=== PATIENT | female | born 1970 | race Caucasian/White ===

== ENCOUNTER → 2016-09-24 | Outpatient (CLI) | payer BC ==
[2016-09-24 13:54] LABS: ALT 33 U/L (9-52); AST 19 U/L (14-36); Alkaline Phosphatase 88 U/L (38-126); Anion Gap 11 mmol/L; Blood Urea Nitrogen 13 mg/dL (7-17); Calcium 9.2 mg/dL (8.4-10.2); Carbon Dioxide 29 mmol/L (22-30); Chloride 105 mmol/L (98-107); Glucose 93 mg/dL (74-99); Non-African American GFR(MDRD) >60 (>60 ml/min/1.73 sqM); Potassium 4.2 mmol/L (3.5-5.1); Sodium 145 mmol/L (137-145); Total Bilirubin 0.4 mg/dL (0.2-1.3); Total Protein 7.4 g/dL (6.3-8.2)
== END | disposition home or self-care (01) ==
LOC: LABWHC1 12:18
PROVIDERS: ATTEND Internal Medicine Endocrinology, Diabetes & Metabolism
DX: C73 Malignant neoplasm of thyroid gland (principal); E89.0 Postprocedural hypothyroidism
CPT/HCPCS: 36415; 80053; 82306; 84432; 84439; 84443; 86800

== ENCOUNTER → 2016-12-29 | Outpatient (CLI) | payer BC ==
[2016-12-29 08:05] LABS: ALT 35 U/L (9-52); AST 24 U/L (14-36); Alkaline Phosphatase 89 U/L (38-126); Anion Gap 5 mmol/L; Blood Urea Nitrogen 13 mg/dL (7-17); C Reactive Protein 31.2 mg/L (<10.0); Carbon Dioxide 30 mmol/L (22-30); Chloride 106 mmol/L (98-107); Creatine Kinase 38 U/L (30-135); Glucose 94 mg/dL (74-99); Non-African American GFR(MDRD) >60 (>60 ml/min/1.73 sqM); Potassium 4.5 mmol/L (3.5-5.1); Sodium 141 mmol/L (137-145); Total Bilirubin 0.6 mg/dL (0.2-1.3); Total Protein 7.5 g/dL (6.3-8.2)
== END | disposition home or self-care (01) ==
LOC: LABWHC1 06:32
PROVIDERS: ATTEND Internal Medicine Endocrinology, Diabetes & Metabolism
DX: C73 Malignant neoplasm of thyroid gland (principal); E55.9 Vitamin D deficiency, unspecified; E89.0 Postprocedural hypothyroidism
CPT/HCPCS: 36415; 80053; 82550; 84439; 84443; 86140

== ENCOUNTER → 2017-02-13 | Outpatient (CLI) | payer BC ==
--- NOTE | 2017-02-13 10:17 | MM ---
Reason for exam: screening (asymptomatic). Last mammogram was performed 1 year and 11 months ago. History: Patient is postmenopausal and has history of other cancer at age 44. Family history of breast cancer in paternal aunt at age 60 and breast cancer in paternal cousin at age 45. Physical Findings: A clinical breast exam by your physician is recommended on an annual basis and results should be correlated with mammographic findings. MG 3D Screening Mammo W/Cad Bilateral CC and MLO view(s) were taken. Prior study comparison: March 24, 2015, bilateral MG screening mammo w CAD. November 21, 2013, bilateral digital screening mammo w/CAD. There are scattered fibroglandular densities. No significant changes when compared with prior studies. ASSESSMENT: Benign, BI-RAD 2 RECOMMENDATION: Routine screening mammogram of both breasts in 1 year.
== END | disposition home or self-care (01) ==
LOC: RADMAMWWP 06:55
PROVIDERS: ATTEND Family Medicine
DX: Z12.31 Encounter for screening mammogram for malignant neoplasm of breast (principal)
CPT/HCPCS: 77063; G0202

== ENCOUNTER → 2017-04-28 | Outpatient (CLI) | payer BC ==
[2017-04-28 14:43] LABS: ALT 38 U/L (9-52); AST 19 U/L (14-36); Alkaline Phosphatase 94 U/L (38-126); Anion Gap 12 mmol/L; Blood Urea Nitrogen 17 mg/dL (7-17); C Reactive Protein 19.7 mg/L (<10.0); Calcium 9.3 mg/dL (8.4-10.2); Carbon Dioxide 24 mmol/L (22-30); Chloride 106 mmol/L (98-107); Glucose 132 mg/dL (74-99); Non-African American GFR(MDRD) >60 (>60 ml/min/1.73 sqM); Potassium 4.1 mmol/L (3.5-5.1); Sodium 142 mmol/L (137-145); Total Bilirubin 0.2 mg/dL (0.2-1.3); Total Protein 7.2 g/dL (6.3-8.2)
== END | disposition home or self-care (01) ==
LOC: LABWHC1 13:36
PROVIDERS: ATTEND Internal Medicine Endocrinology, Diabetes & Metabolism
DX: E55.9 Vitamin D deficiency, unspecified (principal); E89.0 Postprocedural hypothyroidism; C73 Malignant neoplasm of thyroid gland; M79.1 Myalgia
CPT/HCPCS: 36415; 80053; 82306; 84432; 84439; 84443; 86140; 86800

== ENCOUNTER → 2017-09-05 | Outpatient (CLI) | payer BC ==
[2017-09-05 14:46] LABS: Calcium 9.7 mg/dL (8.4-10.2)
[2017-09-05 15:03] LABS: T4, Free (Free Thyroxine) 1.84 ng/dL (0.78-2.19)
[2017-09-05 19:07] LABS: Vitamin D 25 Hydroxy 94.6 ng/mL (30.0-100.0)
== END | disposition home or self-care (01) ==
LOC: LABWHC1 13:15
PROVIDERS: ATTEND Internal Medicine Endocrinology, Diabetes & Metabolism
DX: E55.9 Vitamin D deficiency, unspecified (principal); N95.1 Menopausal and female climacteric states; E89.0 Postprocedural hypothyroidism
CPT/HCPCS: 36415; 82306; 82310; 83001; 83002; 84439; 84443

== ENCOUNTER → 2018-01-02 | Outpatient (CLI) | payer BC ==
[2018-01-02 12:14] LABS: ALT 22 U/L (9-52); AST 20 U/L (14-36); Albumin 4.6 g/dL (3.5-5.0); Alkaline Phosphatase 90 U/L (38-126); Anion Gap 14 mmol/L; Blood Urea Nitrogen 13 mg/dL (7-17); Calcium 9.5 mg/dL (8.4-10.2); Carbon Dioxide 23 mmol/L (22-30); Chloride 109 mmol/L (98-107); Cholesterol 202 mg/dL (<200); Glucose 140 mg/dL (74-99); HDL Cholesterol 59 mg/dL (40-60); LDL Cholesterol,Calculated 126 mg/dL (0-99); Potassium 4.1 mmol/L (3.5-5.1); Sodium 146 mmol/L (137-145); Total Bilirubin 0.3 mg/dL (0.2-1.3); Total Protein 7.7 g/dL (6.3-8.2); Triglycerides 87 mg/dL (<150)
[2018-01-02 12:30] LABS: T4, Free (Free Thyroxine) 1.59 ng/dL (0.78-2.19)
[2018-01-02 18:48] LABS: Thyroglobulin <0.20 ng/mL (1.60-59.90)
== END | disposition home or self-care (01) ==
LOC: LABWHC1 11:34
PROVIDERS: ATTEND Internal Medicine Endocrinology, Diabetes & Metabolism
DX: E89.0 Postprocedural hypothyroidism (principal); E55.9 Vitamin D deficiency, unspecified; M79.1 Myalgia; M89.9 Disorder of bone, unspecified
CPT/HCPCS: 36415; 80053; 80061; 82306; 84432; 84439; 84443; 86800

== ENCOUNTER 2018-02-05 15:27 | Emergency (ER) | payer BC ==
--- NOTE | 2018-02-05 16:22 | ED ---
General Adult HPI - General Chief complaint: Recheck/Abnormal Lab/Rx Stated complaint: Poss blood clot Time Seen by Provider: 02/05/18 16:08 Source: patient, RN notes reviewed Mode of arrival: ambulatory Limitations: no limitations - History of Present Illness Initial comments: Patient is a 47-year-old female significant past medical history for Lupus, DVT , presents to the emergency room today with a chief complaint of some redness and swelling to left lower extremity. She does not that she had a recent stent placed in the left leg at [facility] 5 days ago. Patient states that she noticed some redness to the left lower calf area today. Patient states it is still numb after surgery. Patient states swelling has not changed. Patient denies any other complaints or symptoms. Patient denies any recent fever, chills, shortness of breath, chest pain, back pain, abdominal pain , nausea or vomiting, headaches or visual changes, or any other complaints. - Related Data Home Medications Medication Instructions Recorded Confirmed Biotin 5 mg PO DAILY 02/05/18 02/05/18 Enoxaparin [Lovenox] 100 mg SQ Q12H 02/05/18 02/05/18 Ergocalciferol (Vitamin D2) 50,000 unit PO MOFR 02/05/18 02/05/18 [Vitamin D2] Hydroxychloroquine Sulfate 400 mg PO BID 02/05/18 02/05/18 [Plaquenil] Levothyroxine Sodium [Synthroid] 175 mcg PO DAILY 02/05/18 02/05/18 Turmeric Root Extract [Turmeric] 500 mg PO DAILY 02/05/18 02/05/18 Previous Rx's Medication Instructions Recorded Cephalexin [Keflex] 500 mg PO Q12HR 10 Days cap 02/05/18 Allergies Allergy/AdvReac Type Severity Reaction Status Date / Time Iodinated Contrast- Oral and Allergy Dyspnea Verified 02/05/18 16:11 IV Dye [Iodinated Contrast Media - IV Dye] Review of Systems ROS Statement: Those systems with pertinent positive or pertinent negative responses have been documented in the HPI. ROS Other: All systems not noted in ROS Statement are negative. Past Medical History Past Medical History: Deep Vein Thrombosis (DVT), Pneumonia, Pulmonary Embolus ( PE) Additional Past Medical History / Comment(s): MTHFR Gene mutation predisposes to blood clots. 2 PE's 2006, pneumonia as a child, pericardial effusion-2006, series of DVT 1994, 2001, multiple thyroid nodules lupas History of Any Multi-Drug Resistant Organisms: None Reported Past Surgical History: Uterine Ablation Additional Past Surgical History / Comment(s): [place] filter placed 1994, left oopherectomy, 2 stents in iliac vein left side. leg/venous surg recently Past Anesthesia/Blood Transfusion Reactions: No Reported Reaction Past Psychological History: No Psychological Hx Reported Smoking Status: Never smoker Past Alcohol Use History: None Reported Past Drug Use History: Unable to Obtain - Past Family History Father Family Medical History: Thyroid Disorder Additional Family Medical History / Comment(s): hypothyroid, CHF General Exam - General Exam Comments Initial Comments: General: The patient is awake and alert, in no distress, and does not appear acutely ill. Eye: Pupils are equal, round and reactive to light, extra-ocular movements are intact. No nystagmus. There is normal conjunctiva bilaterally. No signs of icterus. Ears, nose, mouth and throat: There are moist mucous membranes and no oral lesions. Neck: The neck is supple, there is no tenderness or JVD. Musculoskeletal: Normal ROM, no tenderness. Strength 5/5. Sensation intact. Pulses equal bilaterally 2+. Neurological: A&O x 3. CN II-XII intact, There are no obvious motor or sensory deficits. Coordination appears grossly intact. Speech is normal. Skin: Mild redness the mid medial aspect of the left lower extremity with increased warmth with some lymphangitic streaking just below left knee. Psychiatric: Cooperative, appropriate mood & affect, normal judgment. Limitations: no limitations Course Vital Signs 02/05/18 15:44 Temperature 98.5 F Pulse Rate 100 Respiratory 18 Rate Blood Pressure 126/82 O2 Sat by Pulse 98 Oximetry Medical Decision Making - Medical Decision Making Patient reexamined at this time shows no signs of distress. She denies any chest pain, shortness of breath. Her vitals are stable here in emergency room. Patient's resting complete. She does have some mild swelling and some redness to the medial aspect of the left calf. There is a local incision site that is healed well. Redness is surrounding some injection streaking. Ultrasound reviewed and of this specific area believes that there could be partially thrombosed varicose veins. Patient's ultrasound reviewed and shows internal debris seen throughout the left leg within the EIF, CFV, popliteal vein and posterior proximal calf vein. Able to fully compress the left EIV. Other vessels did not fully compress lending itself to a chronic versus an acute process. Patient had a recent procedure to clear clots in this leg and had saphenous vein removed. Patient has been on Lovenox prior to and since this procedure. She was on Coumadin prior to this she stopped did not take Coumadin or Lovenox for 1 day approximately 10 days ago. Patient is currently supposed to stay on Lovenox until her follow-up appointment. At this time patient's findings on ultrasound are inconclusive for a acute DVT versus chronic. Patient's labs are reviewed. Case discussed in detail with attending physician Dr. Bradshaw. Patient is on Lovenox will be continued on this medication advised follow-up with her family doctor tomorrow. In started on antibiotics cover for superficial cellulitis of the left lower leg. Advised to return if symptoms increase or worsen or for any other concerns patient states understanding and is in agreement. - Lab Data Result diagrams: 02/05/18 18:00 02/05/18 18:00 Lab Results 02/05/18 02/05/18 02/05/18 Range/Units 18:00 18:00 18:00 WBC 8.4 (3.8-10.6) k/uL RBC 5.02 (3.80-5.40) m/uL Hgb 12.9 (11.4-16.0) gm/dL Hct 40.3 (34.0-46.0) % MCV 80.2 (80.0-100.0) fL MCH 25.8 (25.0-35.0) pg MCHC 32.2 (31.0-37.0) g/dL RDW 15.6 H (11.5-15.5) % Plt Count 255 (150-450) k/uL Neutrophils % 74 % Lymphocytes % 13 % Monocytes % 8 % Eosinophils % 4 % Basophils % 0 % Neutrophils # 6.2 (1.3-7.7) k/uL Lymphocytes # 1.1 (1.0-4.8) k/uL Monocytes # 0.6 (0-1.0) k/uL Eosinophils # 0.3 (0-0.7) k/uL Basophils # 0.0 (0-0.2) k/uL PT 9.9 (9.0-12.0) sec INR 1.0 (<1.2) APTT 24.4 (22.0-30.0) sec Sodium 145 (137-145) mmol/L Potassium 4.2 (3.5-5.1) mmol/L Chloride 101 (98-107) mmol/L Carbon Dioxide 29 (22-30) mmol/L Anion Gap 15 mmol/L BUN 19 H (7-17) mg/dL Creatinine 0.74 (0.52-1.04) mg/dL Est GFR (CKD-EPI)AfAm >90 (>60 ml/min/1.73 sqM) Est GFR (CKD-EPI)NonAf >90 (>60 ml/min/1.73 sqM) Glucose 87 (74-99) mg/dL Calcium 9.4 (8.4-10.2) mg/dL Total Bilirubin 0.4 (0.2-1.3) mg/dL AST 40 H (14-36) U/L ALT 60 H (9-52) U/L Alkaline Phosphatase 72 (38-126) U/L Total Protein 7.1 (6.3-8.2) g/dL Albumin 4.4 (3.5-5.0) g/dL Disposition Clinical Impression: Cellulitis Disposition: HOME SELF-CARE Condition: Good Instructions: Cellulitis (ED) Additional Instructions: Please continue Lovenox as discussed in follow-up with your family doctor and vascular surgeon. Please use antibiotic as prescribed and return to emergency room if any symptoms increase or worsen or for any other concerns. Prescriptions: Cephalexin [Keflex] 500 mg PO Q12HR 10 Days cap Is patient prescribed a controlled substance at d/c from ED?: No Referrals: Cooper Barksdale MD [Primary Care Provider] - 1-2 days Time of Disposition: 18:41
--- NOTE | 2018-02-05 17:16 | US ---
EXAMINATION TYPE: US venous doppler duplex LE LT DATE OF EXAM: 02/05/2018 4:17 PM COMPARISON: NONE CLINICAL HISTORY: Pain. Patient just had gsv stripping on left leg and what she describes as dvt's re moved from her left femoral vein, popiteal vein and new stenting put in place. Patient has Lupus and has extensive history of DVTs and PE's. SIDE PERFORMED: Left TECHNIQUE: The lower extremity deep venous system is examined utilizing real time linear array sonog fabi with graded compression, doppler sonography and color-flow sonography. VESSELS IMAGED: External Iliac Vein (EIV) Common Femoral Vein Deep Femoral Vein Greater Saphenous Vein * Femoral Vein Popliteal Vein Small Saphenous Vein * Proximal Calf Veins (* superficial vessels) Left Leg: Patient has internal debris seen throughout her left leg within EIV, CFV, popiteal vein an d posterior prox calf vein. Only able to obtain full compression of left EIV. Otherwise vessels did n ot fully compress lending itself to chronic versus acute process, considering her recent sx to remove clot of this leg. Vessels did have color flow but posterior proximal calf vein had no flow within. Medial left calf at lower scar site where redness occurs appears to have partially thrombosed varicos e veins; internal debris seen, minimal color flow and lack of compression. IMPRESSION: There is evidence for acute and chronic deep venous thrombosis in the left leg.
[2018-02-05 18:11] LABS: Basophils % (A) 0 %; Eosinophils # (A) 0.3 k/uL (0-0.7); Eosinophils % (A) 4 %; HCT 40.3 % (34.0-46.0); HGB 12.9 gm/dL (11.4-16.0); Lymphocytes # (A) 1.1 k/uL (1.0-4.8); Lymphocytes % (A) 13 %; MCH 25.8 pg (25.0-35.0); MCHC 32.2 g/dL (31.0-37.0); MCV 80.2 fL (80.0-100.0); Mean Platelet Volume 7.4; Monocytes # (A) 0.6 k/uL (0-1.0); Monocytes % (A) 8 %; Neutrophils # (A) 6.2 k/uL (1.3-7.7); Neutrophils % (A) 74 %; Platelet Count 255 k/uL (150-450); RBC 5.02 m/uL (3.80-5.40); RDW 15.6 % (11.5-15.5); WBC 8.4 k/uL (3.8-10.6)
[2018-02-05 18:16] LABS: Partial Thromboplastin Time 24.4 sec (22.0-30.0); Prothrombin Time 9.9 sec (9.0-12.0)
[2018-02-05 18:20] LABS: ALT 60 U/L (9-52); AST 40 U/L (14-36); Albumin 4.4 g/dL (3.5-5.0); Alkaline Phosphatase 72 U/L (38-126); Anion Gap 15 mmol/L; Blood Urea Nitrogen 19 mg/dL (7-17); Calcium 9.4 mg/dL (8.4-10.2); Carbon Dioxide 29 mmol/L (22-30); Chloride 101 mmol/L (98-107); Glucose 87 mg/dL (74-99); Potassium 4.2 mmol/L (3.5-5.1); Sodium 145 mmol/L (137-145); Total Bilirubin 0.4 mg/dL (0.2-1.3); Total Protein 7.1 g/dL (6.3-8.2)
[2018-02-05 18:51] VITALS: BP 115/69; PULSE 94; RESP 16; TEMP 98.3
== END 2018-02-05 18:51 | disposition home or self-care (01) ==
LOC: EC 15:27
DX: L03.116 Cellulitis of left lower limb (principal); M32.9 Systemic lupus erythematosus, unspecified; E07.89 Other specified disorders of thyroid; Z79.01 Long term (current) use of anticoagulants; Z79.899 Other long term (current) drug therapy; Z91.041 Radiographic dye allergy status; Z86.711 Personal history of pulmonary embolism; Z86.718 Personal history of other venous thrombosis and embolism; Z95.828 Presence of other vascular implants and grafts
CPT/HCPCS: 36415; 80053; 85025; 85610; 85730; 99284

== ENCOUNTER 2018-02-12 12:10 | Emergency (ER) | payer BC ==
[2018-02-12 12:18] VITALS: RESP 18
--- NOTE | 2018-02-12 13:46 | US ---
EXAMINATION TYPE: US venous doppler duplex LE LT DATE OF EXAM: 02/12/2018 1:17 PM COMPARISON: Left leg extremity swelling and pain. CLINICAL HISTORY: Pain. Patient is post op 2 weeks GSV ablation. History of DVT left leg, hx of IVC filter which was taken out and patient has a stent in her IVC SIDE PERFORMED: left TECHNIQUE: The lower extremity deep venous system is examined utilizing real time linear array sonog fabi with graded compression, doppler sonography and color-flow sonography. VESSELS IMAGED: External Iliac Vein (EIV) Common Femoral Vein Deep Femoral Vein Greater Saphenous Vein * Femoral Vein Popliteal Vein Small Saphenous Vein * Proximal Calf Veins, not seen due to swelling (* superficial vessels) Left Leg: Patient appears to have some chronic DVT. Vein appears to have flow at times (mid and dist al femoral vein) flow is thready. Vein is not compressible throughout. IMPRESSION: Persistent residual partial occlusive chronic thrombus in the left lower extremity as det josefina above improved from prior. No new thrombus identified.
--- NOTE | 2018-02-12 14:16 | ED ---
General Adult HPI - General Chief complaint: Extremity Problem,Nontraumatic Stated complaint: poss blood clot Time Seen by Provider: 02/12/18 13:02 Source: patient, RN notes reviewed Mode of arrival: ambulatory Limitations: no limitations - History of Present Illness Initial comments: Patient 47-year-old female status post left lower leg saphenous vein removal 2 weeks, presented to the emergency room today with a chief complaint of increased swelling. Patient was seen here approximately a week ago and negative on some for any new DVT. Patient was treated for a cellulitis. Patient was on Keflex. It was switched by the family doctor to Levaquin. Patient does admit that stool expressing swelling to the left leg seemed to be getting worse. Family doctor to see patient today and sent in to rule out new DVT. She is currently on Lovenox. Patient denies any recent fever, chills, shortness of breath, chest pain, back pain, abdominal pain, nausea or vomiting, dysuria or hematuria, constipation or diarrhea, headaches or visual changes, or any other complaints. - Related Data Home Medications Medication Instructions Recorded Confirmed Biotin 5 mg PO DAILY 02/05/18 02/12/18 Enoxaparin [Lovenox] 100 mg SQ Q12H 02/05/18 02/12/18 Ergocalciferol (Vitamin D2) 50,000 unit PO MOFR 02/05/18 02/12/18 [Vitamin D2] Hydroxychloroquine Sulfate 200 mg PO BID 02/05/18 02/12/18 [Plaquenil] Levothyroxine Sodium [Synthroid] 175 mcg PO DAILY 02/05/18 02/12/18 Turmeric Root Extract [Turmeric] 500 mg PO DAILY 02/05/18 02/12/18 Levofloxacin [Levaquin] 500 mg PO DAILY 02/12/18 02/12/18 Allergies Allergy/AdvReac Type Severity Reaction Status Date / Time Iodinated Contrast- Oral and Allergy Dyspnea Verified 02/12/18 13:58 IV Dye [Iodinated Contrast Media - IV Dye] Review of Systems ROS Statement: Those systems with pertinent positive or pertinent negative responses have been documented in the HPI. ROS Other: All systems not noted in ROS Statement are negative. Past Medical History Past Medical History: Deep Vein Thrombosis (DVT), Pneumonia, Pulmonary Embolus ( PE) Additional Past Medical History / Comment(s): MTHFR Gene mutation predisposes to blood clots. 2 PE's 2006, pneumonia as a child, pericardial effusion-2006, series of DVT 1994, 2001, multiple thyroid nodules lupas History of Any Multi-Drug Resistant Organisms: None Reported Past Surgical History: Uterine Ablation Additional Past Surgical History / Comment(s): [place] filter placed 1994, left oopherectomy, 2 stents in iliac vein left side. leg/venous surg recently Past Anesthesia/Blood Transfusion Reactions: No Reported Reaction Past Psychological History: No Psychological Hx Reported Smoking Status: Never smoker Past Alcohol Use History: None Reported Past Drug Use History: Unable to Obtain - Past Family History Father Family Medical History: Thyroid Disorder Additional Family Medical History / Comment(s): hypothyroid, CHF General Exam - General Exam Comments Initial Comments: General: The patient is awake and alert, in no distress, and does not appear acutely ill. Eye: Pupils are equal, round and reactive to light, extra-ocular movements are intact. No nystagmus. There is normal conjunctiva bilaterally. No signs of icterus. Ears, nose, mouth and throat: There are moist mucous membranes and no oral lesions. Neck: The neck is supple, there is no tenderness or JVD. Musculoskeletal: Normal ROM, no tenderness. Strength 5/5. Sensation intact. Pulses equal bilaterally 2+. Neurological: A&O x 3. CN II-XII intact, There are no obvious motor or sensory deficits. Coordination appears grossly intact. Speech is normal. Skin: Mild redness to the left lower extremity. No lymphangitic streaking. No blood aspirated moderate swelling.. Psychiatric: Cooperative, appropriate mood & affect, normal judgment. Limitations: no limitations Course Vital Signs 02/12/18 12:13 Temperature 98.4 F Pulse Rate 96 Respiratory 18 Rate Blood Pressure 136/70 O2 Sat by Pulse 99 Oximetry Medical Decision Making - Medical Decision Making Patient's ultrasound shows some chronic DVT. Veins appears to have flow at times with mid and distal femoral vein however is a thready flow. Vein not compressible throughout. Patient's labs were reviewed. Case was discussed and seen by tenderness is Dr. Scales twisting patient at bedside. At this time was recommended for transfer back to [facility] where she had previous surgery and saphenous vein removed. Case was discussed with [facility] ER physician Dr. Hickman. Was discussed with patient about transfer by EMS. She has declined states she does not want take an ambulance. Patient given dose of Lovenox here in the emergency room will be transferred by private car. - Lab Data Result diagrams: 02/12/18 14:00 02/12/18 14:00 Lab Results 02/12/18 02/12/18 02/12/18 Range/Units 14:00 14:00 14:00 WBC 6.4 (3.8-10.6) k/uL RBC 4.17 (3.80-5.40) m/uL Hgb 10.9 L (11.4-16.0) gm/dL Hct 33.7 L (34.0-46.0) % MCV 80.9 (80.0-100.0) fL MCH 26.2 (25.0-35.0) pg MCHC 32.4 (31.0-37.0) g/dL RDW 15.9 H (11.5-15.5) % Plt Count 245 (150-450) k/uL Neutrophils % 75 % Lymphocytes % 14 % Monocytes % 5 % Eosinophils % 4 % Basophils % 1 % Neutrophils # 4.8 (1.3-7.7) k/uL Lymphocytes # 0.9 L (1.0-4.8) k/uL Monocytes # 0.3 (0-1.0) k/uL Eosinophils # 0.2 (0-0.7) k/uL Basophils # 0.0 (0-0.2) k/uL Hypochromasia Slight PT 10.3 (9.0-12.0) sec INR 1.0 (<1.2) APTT 25.7 (22.0-30.0) sec Sodium 144 (137-145) mmol/L Potassium 4.3 (3.5-5.1) mmol/L Chloride 105 (98-107) mmol/L Carbon Dioxide 26 (22-30) mmol/L Anion Gap 13 mmol/L BUN 16 (7-17) mg/dL Creatinine 0.71 (0.52-1.04) mg/dL Est GFR (CKD-EPI)AfAm >90 (>60 ml/min/1.73 sqM) Est GFR (CKD-EPI)NonAf >90 (>60 ml/min/1.73 sqM) Glucose 90 (74-99) mg/dL Calcium 9.1 (8.4-10.2) mg/dL Total Bilirubin 0.3 (0.2-1.3) mg/dL AST 24 (14-36) U/L ALT 34 (9-52) U/L Alkaline Phosphatase 68 (38-126) U/L Total Protein 6.7 (6.3-8.2) g/dL Albumin 3.9 (3.5-5.0) g/dL Disposition Clinical Impression: Chronic deep vein thrombosis (DVT) 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 Is patient prescribed a controlled substance at d/c from ED?: No Referrals: Cooper Barksdale MD [Primary Care Provider] - 1-2 days Time of Disposition: 15:20 - Out of Hospital Transfer - Req. Specs Out of Hospital Transfer - Requested Specifics: Other Emergency Center ( [facility])
[2018-02-12 14:23] LABS: Basophils % (A) 1 %; Eosinophils # (A) 0.2 k/uL (0-0.7); Eosinophils % (A) 4 %; HCT 33.7 % (34.0-46.0); HGB 10.9 gm/dL (11.4-16.0); Hypochromasia Slight; Lymphocytes # (A) 0.9 k/uL (1.0-4.8); Lymphocytes % (A) 14 %; MCH 26.2 pg (25.0-35.0); MCHC 32.4 g/dL (31.0-37.0); MCV 80.9 fL (80.0-100.0); Mean Platelet Volume 6.6; Monocytes # (A) 0.3 k/uL (0-1.0); Monocytes % (A) 5 %; Neutrophils # (A) 4.8 k/uL (1.3-7.7); Neutrophils % (A) 75 %; Platelet Count 245 k/uL (150-450); RBC 4.17 m/uL (3.80-5.40); RDW 15.9 % (11.5-15.5); WBC 6.4 k/uL (3.8-10.6)
[2018-02-12 14:30] LABS: ALT 34 U/L (9-52); AST 24 U/L (14-36); Albumin 3.9 g/dL (3.5-5.0); Alkaline Phosphatase 68 U/L (38-126); Anion Gap 13 mmol/L; Blood Urea Nitrogen 16 mg/dL (7-17); Calcium 9.1 mg/dL (8.4-10.2); Carbon Dioxide 26 mmol/L (22-30); Chloride 105 mmol/L (98-107); Glucose 90 mg/dL (74-99); Potassium 4.3 mmol/L (3.5-5.1); Sodium 144 mmol/L (137-145); Total Bilirubin 0.3 mg/dL (0.2-1.3); Total Protein 6.7 g/dL (6.3-8.2)
[2018-02-12 14:35] LABS: Partial Thromboplastin Time 25.7 sec (22.0-30.0); Prothrombin Time 10.3 sec (9.0-12.0)
[2018-02-12] MEDS ORDERED: ENOXAPARIN 100 MG/ML SYRINGE SQ STA (15:13)
[2018-02-12 15:46] VITALS: BP 121/75; PULSE 86; TEMP 98.1
== END 2018-02-12 15:49 | disposition short-term general hospital (02) ==
LOC: EC 12:10
DX: I82.509 Chronic embolism and thrombosis of unspecified deep veins of unspecified lower extremity (principal); M32.9 Systemic lupus erythematosus, unspecified; E07.89 Other specified disorders of thyroid; Z79.01 Long term (current) use of anticoagulants; Z79.899 Other long term (current) drug therapy; Z91.041 Radiographic dye allergy status; Z87.01 Personal history of pneumonia (recurrent); Z86.711 Personal history of pulmonary embolism; Z98.890 Other specified postprocedural states
CPT/HCPCS: 36415; 80053; 85025; 85610; 85730; 93971; 99284; 96372; J1650

== ENCOUNTER → 2018-04-11 | Outpatient (CLI) | payer BC ==
--- NOTE | 2018-04-17 09:11 | MM ---
Reason for exam: screening (asymptomatic). Last mammogram was performed 1 year and 2 months ago. History: Patient is postmenopausal and has history of other cancer at age 44. Family history of breast cancer in paternal aunt at age 60 and breast cancer in paternal cousin at age 45. Physical Findings: A clinical breast exam by your physician is recommended on an annual basis and results should be correlated with mammographic findings. MG Screening Mammo w CAD Bilateral CC and MLO view(s) were taken. Prior study comparison: February 13, 2017, bilateral MG 3d screening mammo w/cad. March 24, 2015, bilateral MG screening mammo w CAD. There are scattered fibroglandular densities. No suspicious abnormality. No significant changes when compared with prior studies. ASSESSMENT: Negative, BI-RAD 1 RECOMMENDATION: Routine screening mammogram of both breasts in 1 year.
== END | disposition home or self-care (01) ==
LOC: RADMAMWWP 07:22
PROVIDERS: ATTEND Family Medicine
DX: Z12.31 Encounter for screening mammogram for malignant neoplasm of breast (principal)
CPT/HCPCS: 77067

== ENCOUNTER → 2018-08-06 | Outpatient (CLI) | payer BC ==
[2018-08-06 10:08] LABS: Anisocytosis Slight; HCT 37.8 % (34.0-46.0); HGB 11.7 gm/dL (11.4-16.0); Hypochromasia Slight; MCH 25.3 pg (25.0-35.0); MCHC 30.9 g/dL (31.0-37.0); Mean Platelet Volume 6.9; Platelet Count 245 k/uL (150-450); RBC 4.61 m/uL (3.80-5.40); RDW 16.2 % (11.5-15.5); WBC 5.2 k/uL (3.8-10.6)
[2018-08-06 10:15] LABS: D-Dimer 0.31 mg/L FEU (<0.60); INR 1.5 (<1.2); Prothrombin Time 15.5 sec (9.0-12.0)
[2018-08-06 17:10] LABS: Anion Gap 6.2 mmol/L (4.00-12.00); Calcium 8.8 mg/dL (8.7-10.3); Carbon Dioxide 26.8 mmol/L (21.6-31.8); Potassium 3.9 mmol/L (3.5-5.5)
== END | disposition home or self-care (01) ==
LOC: LABWHC1 09:24
PROVIDERS: ATTEND Radiology Diagnostic Radiology
DX: I82.402 Acute embolism and thrombosis of unspecified deep veins of left lower extremity (principal)
CPT/HCPCS: 36415; 80048; 85027; 85379; 85610; 86141

== ENCOUNTER → 2018-11-05 | Outpatient (CLI) | payer BC ==
[2018-11-05 16:55] LABS: T4, Free (Free Thyroxine) 1.8 ng/dL (0.80-1.80)
== END | disposition home or self-care (01) ==
LOC: LABWHC1 11:06
PROVIDERS: ATTEND Internal Medicine Endocrinology, Diabetes & Metabolism
DX: E66.9 Obesity, unspecified (principal)
CPT/HCPCS: 36415; 84439; 84443

== ENCOUNTER → 2019-01-11 | Outpatient (CLI) | payer BC ==
[2019-01-11 09:56] LABS: HCT 38.2 % (34.0-46.0); HGB 11.8 gm/dL (11.4-16.0); Hypochromasia Moderate; MCHC 30.8 g/dL (31.0-37.0); MCV 81.1 fL (80.0-100.0); Mean Platelet Volume 6.8; Platelet Count 299 k/uL (150-450); Poikilocytosis Slight; RBC 4.71 m/uL (3.80-5.40); RDW 15.5 % (11.5-15.5); WBC 5.8 k/uL (3.8-10.6)
[2019-01-11 10:06] LABS: D-Dimer 0.19 mg/L FEU (<0.60); Prothrombin Time 19.3 sec (9.0-12.0)
[2019-01-11 16:08] LABS: Anion Gap 7.2 mmol/L (4.00-12.00); Calcium 9.2 mg/dL (8.7-10.3); Carbon Dioxide 27.8 mmol/L (21.6-31.8); Potassium 4.1 mmol/L (3.5-5.5)
== END ==
LOC: LABWHC1 08:52
PROVIDERS: ATTEND Radiology Diagnostic Radiology
DX: I82.409 Acute embolism and thrombosis of unspecified deep veins of unspecified lower extremity (principal); C22.0 Liver cell carcinoma; K76.6 Portal hypertension; K83.09 Other cholangitis; D18.00 Hemangioma unspecified site; D25.9 Leiomyoma of uterus, unspecified; N92.0 Excessive and frequent menstruation with regular cycle; N18.6 End stage renal disease; I82.0 Budd-Chiari syndrome; I71.4 Abdominal aortic aneurysm, without rupture; I71.02 Dissection of abdominal aorta; I71.01 Dissection of thoracic aorta; I87.1 Compression of vein; Q27.39 Arteriovenous malformation, other site; Q27.32 Arteriovenous malformation of vessel of lower limb; I83.899 Varicose veins of unspecified lower extremity with other complications
CPT/HCPCS: 36415; 80048; 85027; 85379; 85610; 86141

== ENCOUNTER → 2019-03-07 | Outpatient (CLI) | payer BC ==
[2019-03-07 16:31] LABS: INR 2.3 (<1.2); Prothrombin Time 22.5 sec (9.0-12.0)
[2019-03-07 23:59] LABS: T4, Free (Free Thyroxine) 1.4 ng/dL (0.80-1.80)
== END | disposition home or self-care (01) ==
LOC: LABWHC1 15:35
PROVIDERS: ATTEND Internal Medicine Endocrinology, Diabetes & Metabolism
DX: D68.59 Other primary thrombophilia (principal); E89.0 Postprocedural hypothyroidism
CPT/HCPCS: 36415; 84439; 84443; 85610

== ENCOUNTER → 2019-05-07 | Outpatient (CLI) | payer BC ==
--- NOTE | 2019-05-07 10:15 | CT ---
EXAMINATION TYPE: CT foot RT wo con DATE OF EXAM: 05/07/2019 COMPARISON: None. HISTORY: Fall injury with right foot pain per order. CT DLP: 212.8 mGycm Automated exposure control for dose reduction was used. FINDINGS: There is external fixating K wire through the medial cuneiform extending into the medial base of the navicular bone. Tiny bony fragmentation medial to the articulation is seen best on axial image 32. Ar ticulation is overall maintained. There is largest bone fragment inferiorly measuring 9 mm axial imag e 35-year-old base of the medial cuneiform. There are 2 additional fixating external K wires medially through the cuneiforms bone terminating in the lateral cuneiform. There are some small bony fragmentation near the base of the medial and middle cuneiform axial image 37. Navicular bone shows some tiny fragmentation along the lateral aspect axial image 31. There are some tiny bony fragmentation near base of second metatarsal axial images 41 through 44. Art iculations with cuneiform bones are maintained or satisfactory operative fixation. Overlying casting material is present. There is moderate diffuse subcutaneous edema slightly more pro minent along the dorsal surface. Incidental moderate size superior and inferior calcaneal spurs. IMPRESSION: As above.
== END | disposition home or self-care (01) ==
LOC: RADCTMAIN 07:58
PROVIDERS: ATTEND Orthopaedic Surgery
DX: S92.241A Displaced fracture of medial cuneiform of right foot, initial encounter for closed fracture (principal); S92.251A Displaced fracture of navicular [scaphoid] of right foot, initial encounter for closed fracture; S92.321A Displaced fracture of second metatarsal bone, right foot, initial encounter for closed fracture; R60.1 Generalized edema; S93.334A Other dislocation of right foot, initial encounter

== ENCOUNTER 2019-05-23 06:47 | Day surgery (SDC) | payer BC ==
[2019-05-17 11:58] VITALS: BMI 31.4
[~2019-05-23 06:47] MED LIST: DEXAMETHASONE SOD PHOSPHATE 10 MG/ML 1 ML VIAL IV ONE; LACTATED RINGERS 1,000 ML IV SCH; LIDOCAINE 1% 20 ML VIAL (10MG/ML) FOR IV START INTRADERMA PRN; MIDAZOLAM 2 MG/2 ML VIAL IV PRN; fentaNYL (PF) 50 MCG/ML 2 ML AMP IV PRN
[2019-05-23 07:20] VITALS: RESP 16
[2019-05-23] MEDS: ONDANSETRON 4 MG/2 ML VIAL IVP ONE ×2 (07:25→11:39)
--- NOTE | 2019-05-23 08:53 | P.ANPRN ---
Procedure Note - Anesthesia - Nerve Block Performed Right Popliteal Single Time Out Performed: Yes Date of Procedure: 05/23/19 Procedure Start Time: 08:16 Procedure Stop Time: :22 Location of Patient Procedure: PreOp Indication: Acute Post-Operative Pain, Requested by Surgeon Sedation Type: Sedate with meaningful contact maintained Preparation: Sterile Prep Position: Left Lateral Needle Types: Pajunk Needle Gauge: 21 Ultrasound used to visualize needle placement: Yes Ultrasound used to observe medication spread: Yes Blood Aspirated: No Pain Paresthesia on Injection Noted: No Resistance on Injection: Normal Image Stored and Saved: Yes Events: Uneventful and Well Tolerated (ropi .5% 20cc plus dexamethasone 4mg)
[2019-05-23] MEDS ORDERED: HYDROmorphone (PF) 1 MG/ML ONE (08:55)
[2019-05-23] MEDS ORDERED: ROPIVACAINE 5 MG/ML 30 ML VIAL ONE (08:55)
[2019-05-23] MEDS ORDERED: LIDOCAINE 1% INJ 10MG/ML (20 ML MDV) ONE (08:55)
[2019-05-23] MEDS ORDERED: MIDAZOLAM 2 MG/2 ML VIAL ONE (08:55)
[2019-05-23] MEDS ORDERED: PROPOFOL 10 MG/ML 20 ML VIAL IV ONE (08:55)
[2019-05-23] MEDS ORDERED: DEXAMETHASONE SOD PHOSPHATE 4 MG/ML 1 ML VIAL ONE (08:55)
[2019-05-23] MEDS ORDERED: fentaNYL (PF) 50 MCG/ML 2 ML AMP ONE (08:55)
[2019-05-23] MEDS ORDERED: SUCCINYLCHOLINE CHLORIDE 100 MG/5 ML SYR IV ONE (08:55)
--- NOTE | 2019-05-23 10:31 | P.OP ---
Date of Procedure: 05/23/19 Preoperative Diagnosis: Closed right Lisfranc injury with intercuneiform instability and navicular tuberosity avulsion fracture Postoperative Diagnosis: Same Procedure(s) Performed: 1. Open reduction and internal fixation of multiple mid tarsal joint disl ocations (open reduction internal fixation right Lisfranc) 2. Nonoperative management right navicular fracture 3. Manual application of joint stress by physician for radiography, right foot 4. Hardware removal, right foot 5. Application of short leg splint by physician, right leg Anesthesia: CRISTINA Surgeon: Juan Hyman Varnish Maker Helper #1: Sherron Stevenson Estimated Blood Loss (ml): 5 IV fluids (ml): 1,100 Pathology: none sent Condition: stable Disposition: PACU Indications for Procedure: The patient is a very pleasant 49-year-old female who sustained an isolated inj ury to her right foot several weeks ago while she was in [place]. The patient was initially seen at an urgent care and was diagnosed with a foot sprain. She was seen the following Monday in my office at which time her x-rays showed a Lisfranc variant injury with significant intercuneiform instability and dislocation of the medial naviculocuneiform joint. She underwent urgent reduction and percutaneous pinning due to the significant instability of her foot. She was placed in a splint to allow for swelling to resolve. A computed tomography scan was obtained. She followed up after the computed tomography scan to discuss treatment. We discussed standard of care is for open reduction internal fixation with rigid fixation. We discussed the severity of her injury and the possibility for posterior medical arthritis and chronic pain. We discussed potential risks and Locations of surgery including but not limited to risk of anesthesia, superficial infection, deep infection, delayed wound healing, damage to local blood vessels or nerves, nonunion, malunion, malreduction, posttraumatic arthritis, DVT, PE, other medical complications, symmetric hardware, dissatisfaction with surgery, need for other procedures including midfoot fusion, and other less common complications. The patient voiced understanding of these potential complications and provided her consent to go forward with surgery. Description of Procedure: The patient was identified in preoperative holding and the correct right leg was marked with my initials. I reviewed the consent form with the patient and her . All their questions were answered. Prior to entering the operating room the popliteal and saphenous nerve block was placed by anesthesia. The patient was then brought back to the operating room. She was positioned on the OR table where general anesthetic and preoperative antibiotics were given. A timeout was performed identifying the correct patient, operative extremity, and procedure. A tourniquet was applied to the proximal aspect of the right leg. All bony prominences were well-padded. A bump was placed on the right buttock internally rotate the leg to neutral. I then removed the K wires and her foot with a needle pile driver operator. Fluoroscopy was brought in to take preoperative imaging. There is still some displacement to the intercuneiform joint and Lisfranc joint but stability was significantly improved since her previous closed reduction at the time of her injury. The right leg was prepped and draped in the standard sterile fashion. I began by outlining a standard dorsomedial incision centered between the first and second metatarsals directly over the Lisfranc joint complex. Skin incision was made with a scalpel. Dissection was carried down carefully to the subcu tissues tissue with tenotomy scissors. The EHL tendon sheath was incised and the tendon was retracted laterally. The periosteum over the intercuneiform joints was sharply elevated. There was still significant instability. The brain was removed to allow reduction. The space between the base of the first and second metatarsals was also cleaned of debris to allow anatomic reduction. At this point the joints were adequately debrided and a reduction was performed. A stab incision was made through the skin at the lateral base the second metatarsal. One mimi of a large Wilson pointed reduction clamp was placed through the stab hole onto the lateral base the second metatarsal and the other mimi was placed over stab incision along the medial border of the medial cu neiform. The spin down Wilson clamp was gently tightened and fluoroscopy was used to verify reduction of the Lisfranc joint. The medial border of the second metatarsal lined up with the medial border of the middle cuneiform and there was no diastases. A K wire for a cannulated 2.7 mm drill bit was then placed from the medial cuneiform into the base of the second metatarsal using fluoroscopy to verify the orientation of the guidewire on orthogonal views and the did not violate the first tarsometatarsal joint. A cannulated 2.7 mm drill bit was then used to create a path for a solid 4.0 mm cortical screw. The K wire was removed and the solid 4.0 screw was placed generating excellent compression. The Wilson reduction clamp was removed and the reduction held. I then placed a second K wire for a cannulated 2.7 mm drill bit from the medial border of the medial cuneiform across the intercuneiform joint and into the lateral cuneiform. Fluoroscopy was used to verify position of the K wire. A cannulated 2.7 mm drill bit was used to create a path and the K wire was removed. A solid 4.0 mm cortical screw was then placed across the intercuneiform joint again generating excellent compression. At this point x-rays were taken with fluoroscopy to assess reduction and stability. On the AP, oblique, and lateral views the joints appeared to be well reduced and the hardware was in exceptional position. A manual abduction stress x-ray showed no instability through the Lisfranc, intercuneiform, and naviculocuneiform joints. I interpreted this image to show stability not requiring further hardware for stability. The wound was thoroughly irrigated and closed in layers with 2-0 Vicryl for the periosteal layer, 3-0 Monocryl for the subcu, and 3-0 nylon Allgower modification of the Donati stitch for the skin. All stab incisions were closed with interrupted 3-0 nylon horizontal mattress stitches. I verified that all instrument, sponge, and sharp counts were correct. A sterile dressing consisting of Betadine soaked Adaptic, 4 x 4, and web roll was applied. The tourniquet was let down. A well- padded bulky Romeo splint was placed with the ankle at neutral. The patient was awoken from her anesthetic, transferred from [facility], and brought to recovery having tolerated the procedure well. Sherron Stevenson PA-C was required as a skilled information services assistant for patient positioning, surgical exposure, retraction, closure of wounds, and application of splint. Plan: The patient is going to discharge home as an outpatient. She is to remain strictly nonweightbearing on her right leg. She was instructed on normal splint maintenance. She'll follow-up in 2 weeks for splint removal and nonweightbearing x-rays of the right foot.
[2019-05-23 10:47] VITALS: TEMP 98.1
--- NOTE | 2019-05-23 11:15 | FL ---
EXAMINATION TYPE: FL guidance operating room, XR foot complete RT DATE OF EXAM: 05/23/2019 CLINICAL HISTORY: Fluoroscopic documentation during Lisfranc fracture repair TECHNIQUE: Fluoroscopy. COMPARISON: None. FINDINGS: Fluoroscopic guidance was provided during procedure performed by Dr. Hyman. A total of 2 seconds of fluoroscopic time was utilized during the procedure and 4 spot images was acquired duri ng Lisfranc fracture repair. IMPRESSION: As Above.
[2019-05-23] MEDS: HYDROmorphone 0.5 MG/0.5 ML SYRINGE IVP PRN ×2 (11:35→11:39)
[2019-05-23] MEDS ORDERED: HYDROcodone/APAP 10-325MG 1 EACH TAB PO ONE (12:35)
[2019-05-23 13:03] VITALS: BP 115/73; PULSE 98
--- NOTE | 2019-05-29 10:22 | CDI ---
Date: 05.29.19 CDS/Erco Machine Operator Name: Keke Patino Phone: If any questions, call Muriel Ospina Buffing Machine Tender at [phone] Patient Name: Shauna Rubio Admit Date: 05.23.19 Discharge Date: 05.23.19 ATTENTION: The [facility] Coding Staff appreciate your assistance in clarifying documentation. Please respond to the clarification below the line at the bottom and electronically sign. The [facility] Coding staff will review the response and follow-up if needed. Please note: Queries are made part of the Legal Health Record. If you have any questions, please contact the Buffing Machine Tender. Dear In your Operative report there were popliteal and saphenous nerve block placed. For post operative pain management there is only the popliteal nerve block mentioned. Please clarify the postoperative pain managment nerve block for: ____only popliteal nerve ____both popliteal and saphenous nerve Thank you for your kind consideration. Clairfy with anesthesia. I don't perform blocks, an anesthesiologist does. Their note should clairfy what was done. If it doesn't, I would check with them. Yenni BARRAGAN
== END 2019-05-23 13:15 | disposition home or self-care (01) ==
LOC: OR 06:47
PROVIDERS: ATTEND Orthopaedic Surgery
DX: S93.324A Dislocation of tarsometatarsal joint of right foot, initial encounter (principal); S92.251A Displaced fracture of navicular [scaphoid] of right foot, initial encounter for closed fracture; W19.XXXA Unspecified fall, initial encounter; E89.0 Postprocedural hypothyroidism; M32.9 Systemic lupus erythematosus, unspecified; E72.12 Methylenetetrahydrofolate reductase deficiency; Z79.890 Hormone replacement therapy; Z79.899 Other long term (current) drug therapy; Z79.01 Long term (current) use of anticoagulants; Z97.3 Presence of spectacles and contact lenses; Z86.718 Personal history of other venous thrombosis and embolism; Z86.711 Personal history of pulmonary embolism; Z85.850 Personal history of malignant neoplasm of thyroid; Z91.041 Radiographic dye allergy status; Z82.49 Family history of ischemic heart disease and other diseases of the circulatory system
CPT/HCPCS: 28615; 64445; 81025; 76942; 73630; C1713; J2250; J1100 ×2; J0690; J2405; J2001; J3010; J1170 ×2; J2795; J0330; J2704

== ENCOUNTER → 2019-10-31 | Outpatient (CLI) | payer BC ==
--- NOTE | 2019-11-04 09:11 | MM ---
Reason for exam: screening (asymptomatic). Last mammogram was performed 1 year and 7 months ago. History: Patient is postmenopausal and has history of other cancer at age 44. Family history of breast cancer in paternal aunt at age 60 and breast cancer in paternal cousin at age 45. Physical Findings: A clinical breast exam by your physician is recommended on an annual basis and results should be correlated with mammographic findings. MG Screening Mammo w CAD Bilateral CC and MLO view(s) were taken. Prior study comparison: April 11, 2018, bilateral MG screening mammo w CAD. February 13, 2017, bilateral MG 3d screening mammo w/cad. There are scattered fibroglandular densities. No significant changes when compared with prior studies. ASSESSMENT: Benign, BI-RAD 2 RECOMMENDATION: Routine screening mammogram of both breasts in 1 year.
== END | disposition home or self-care (01) ==
LOC: RADMAMWWP 14:03
PROVIDERS: ATTEND Family Medicine
DX: Z12.39 Encounter for other screening for malignant neoplasm of breast (principal)
CPT/HCPCS: 77067

== ENCOUNTER → 2020-02-03 | Outpatient (CLI) | payer BC ==
[2020-02-03 12:41] LABS: INR 1.6 (<1.2); Prothrombin Time 15.8 sec (9.0-12.0)
[2020-02-03 17:55] LABS: T4, Free (Free Thyroxine) 1.7 ng/dL (0.80-1.80)
== END | disposition home or self-care (01) ==
LOC: LABWHC1 11:39
PROVIDERS: ATTEND Internal Medicine
DX: C73 Malignant neoplasm of thyroid gland (principal); E89.0 Postprocedural hypothyroidism
CPT/HCPCS: 36415; 84432; 84439; 84443; 85610; 86800

== ENCOUNTER → 2020-07-09 | Outpatient (CLI) | payer BC ==
[2020-07-09 23:46] LABS: INR 2.04 (0.90-1.11); Prothrombin Time 20.9 sec (9.9-11.9)
== END | disposition home or self-care (01) ==
LOC: LABWHC1 16:19
PROVIDERS: ATTEND Radiology Vascular & Interventional Radiology
DX: D68.59 Other primary thrombophilia (principal); Z11.59 Encounter for screening for other viral diseases
CPT/HCPCS: 36415; 85610

== ENCOUNTER → 2020-11-20 | Outpatient (CLI) | payer BC ==
[2020-11-20 18:04] LABS: Basophils # (A) 0.03 X 10*3/uL (0.00-0.10); Basophils % (A) 0.7 %; Eosinophils # (A) 0.11 X 10*3/uL (0.04-0.35); Eosinophils % (A) 2.5 %; HCT 43.8 % (37.2-46.3); Lymphocytes # (A) 0.47 X 10*3/uL (0.90-5.00); Lymphocytes % (A) 10.8 %; MCH 24.9 pg (27.0-32.0); MCHC 29.7 g/dL (32.0-37.0); MCV 83.7 fL (80.0-97.0); Mean Platelet Volume 9.5 fL (9.5-12.2); Monocytes # (A) 0.47 X 10*3/uL (0.20-1.00); Monocytes % (A) 10.8 %; Neutrophils # (A) 3.25 X 10*3/uL (1.80-7.70); Neutrophils % (A) 74.7 %; Platelet Count 265 X 10*3/uL (140-440); RBC 5.23 X 10*6/uL (4.10-5.20); RDW 15.9 % (11.5-14.5); WBC 4.35 X 10*3/uL (4.50-10.00)
[2020-11-20 18:52] LABS: INR 1.89 (0.90-1.11); Prothrombin Time 19.8 sec (9.9-11.9)
[2020-11-20 19:28] LABS: African American GFR (CKD) 98.2 (60.0-200.0); Albumin 4.8 g/dL (3.80-4.90); Albumin/Globulin Ratio 2.18 (1.60-3.17); Anion Gap 10.9 mmol/L (4.00-12.00); BUN/Creat Ratio 16.25 Ratio (12.00-20.00); Calcium 9.7 mg/dL (8.7-10.3); Carbon Dioxide 27.1 mmol/L (21.6-31.8); Globulin 2.2 g/dL (1.6-3.3); Non-African American GFR(CKD) 84.8 (60.0-200.0); Potassium 4.2 mmol/L (3.5-5.5); Total Bilirubin 0.4 mg/dL (0.2-1.2)
[2020-11-20 19:37] LABS: T4, Free (Free Thyroxine) 1.6 ng/dL (0.80-1.80)
== END | disposition home or self-care (01) ==
LOC: LABWHC1 11:34
PROVIDERS: ATTEND Family Medicine
DX: Z00.00 Encounter for general adult medical examination without abnormal findings (principal); E55.9 Vitamin D deficiency, unspecified; D68.59 Other primary thrombophilia; E89.0 Postprocedural hypothyroidism
CPT/HCPCS: 36415; 80053; 82306; 82465; 84439; 84443; 84478; 85025; 85610

== ENCOUNTER → 2021-01-28 | Outpatient (CLI) | payer BC ==
--- NOTE | 2021-01-29 14:59 | MM ---
Reason for exam: screening (asymptomatic). Last mammogram was performed 1 year and 3 months ago. History: Patient is postmenopausal and has history of other cancer at age 44. Family history of breast cancer in paternal aunt at age 60 and breast cancer in paternal cousin at age 45. Physical Findings: A clinical breast exam by your physician is recommended on an annual basis and results should be correlated with mammographic findings. MG Screening Mammo w CAD Bilateral CC and MLO view(s) were taken. Prior study comparison: October 31, 2019, bilateral MG screening mammo w CAD. April 11, 2018, bilateral MG screening mammo w CAD. There are scattered fibroglandular densities. ASSESSMENT: Benign, BI-RAD 2 RECOMMENDATION: Routine screening mammogram of both breasts in 1 year.
== END | disposition home or self-care (01) ==
LOC: RADMAMWWP 16:23
PROVIDERS: ATTEND Obstetrics & Gynecology Obstetrics
DX: Z12.31 Encounter for screening mammogram for malignant neoplasm of breast (principal); Z78.0 Asymptomatic menopausal state; Z80.3 Family history of malignant neoplasm of breast
CPT/HCPCS: 77067

== ENCOUNTER → 2021-03-31 | Outpatient (CLI) | payer BC ==
[2021-04-01 01:04] LABS: T4, Free (Free Thyroxine) 1.4 ng/dL (0.80-1.80)
== END | disposition home or self-care (01) ==
LOC: LABWHC1 11:53
PROVIDERS: ATTEND Internal Medicine
DX: C73 Malignant neoplasm of thyroid gland (principal); E55.9 Vitamin D deficiency, unspecified; E89.0 Postprocedural hypothyroidism
CPT/HCPCS: 36415; 82306; 84432; 84439; 84443; 86800

== ENCOUNTER → 2021-05-19 | Outpatient (CLI) | payer BC ==
--- NOTE | 2021-05-19 12:15 | US ---
EXAMINATION TYPE: US venous doppler duplex LE LT DATE OF EXAM: 05/19/2021 8:05 AM COMPARISON: NONE CLINICAL HISTORY: 51-year-old female I87.2 VENOUS INSUFFICIENCY LT LOWER EXT. History of DVT, 2 IVC s tents SIDE PERFORMED: Left TECHNIQUE: The lower extremity deep venous system is examined utilizing real time linear array sonog fabi with graded compression, doppler sonography and color-flow sonography. FINDINGS: VESSELS IMAGED: Common Femoral Vein Deep Femoral Vein Greater Saphenous Vein * Femoral Vein Popliteal Vein Small Saphenous Vein * Proximal Calf Veins (* superficial vessels) Design Architect notes:DVT study done due to patient's DVT history, insufficiency study done per order d iagnosis Left Leg: Appears negative for DVT. Venous reflux noted at EIV, GSV, CFV, upper mid and lower FV, upper mid and lower popliteal vein, and small saphenous vein IMPRESSION: 1. No evidence for DVT within the left lower extremity imaged from the groin to the upper calf. 2. Left lower extremity venous reflux as above.
== END | disposition home or self-care (01) ==
LOC: RADUSWWP 07:38
PROVIDERS: ATTEND Nurse Practitioner Family
DX: I87.2 Venous insufficiency (chronic) (peripheral) (principal)

== ENCOUNTER → 2021-11-03 | Outpatient (CLI) | payer BC ==
[2021-11-03 23:54] LABS: Albumin 4.2 g/dL (3.8-4.9); Albumin/Globulin Ratio 1.65 (1.60-3.17); Anion Gap 12.5 mmol/L (10.00-18.00); BUN/Creat Ratio 20.71 Ratio (12.00-20.00); Calcium 9.1 mg/dL (8.7-10.3); Globulin 2.5 g/dL (1.6-3.3); Non-African American GFR(CKD) 100.1 (60.0-200.0); Potassium 3.6 mmol/L (3.5-5.5); Total Bilirubin 0.3 mg/dL (0.30-1.20); Total Protein 6.7 g/dL (6.2-8.2)
== END | disposition home or self-care (01) ==
LOC: LABWHC1 14:29
PROVIDERS: ATTEND Family Medicine
DX: D68.62 Lupus anticoagulant syndrome (principal)
CPT/HCPCS: 36415; 80053

== ENCOUNTER → 2022-04-07 | Outpatient (CLI) | payer BC ==
[2022-04-07 16:04] LABS: T4, Free (Free Thyroxine) 1.96 ng/dL (0.800-1.800)
== END | disposition home or self-care (01) ==
LOC: LABWHC1 10:25
PROVIDERS: ATTEND Internal Medicine
DX: C73 Malignant neoplasm of thyroid gland (principal); E89.0 Postprocedural hypothyroidism; E55.9 Vitamin D deficiency, unspecified
CPT/HCPCS: 36415; 82306; 84432; 84439; 84443; 86800

== ENCOUNTER → 2022-08-02 | Outpatient (CLI) | payer BC ==
--- NOTE | 2022-08-03 09:17 | MM ---
Reason for Exam: Screening (asymptomatic). Last mammogram was performed 1 year(s) and 6 month(s) ago. Patient History: Menarche at age 9. First Full-Term at age 25. Left ovary removed at age 39. Postmenopausal. Other cancer, age 44. Paternal cousin had breast cancer, age 45. Paternal aunt had breast cancer, age 60. Risk Values: Felicitas 5 year model risk: 1.4%. NCI Lifetime model risk: 10.1%. Prior Study Comparison: 04/11/2018 Bilateral Screening Mammogram, [facility]. 10/31/2019 Bilateral Screening Mammogram, [facility]. 01/28/2021 Bilateral Screening Mammogram, [facility]. Tissue Density: There are scattered fibroglandular densities. Findings: Analyzed By CAD. There is no suspicious group of microcalcifications or new suspicious mass in either breast. Overall Assessment: Negative, BI-RAD 1 Management: Screening Mammogram of both breasts in 1 year. A clinical breast exam by your physician is recommended on an annual basis and results should be correlated with mammographic findings. Electronically signed and approved by: Perfecto Sifuentes M.D.
== END | disposition home or self-care (01) ==
LOC: RADMAMWWP 14:44
PROVIDERS: ATTEND Obstetrics & Gynecology Obstetrics
DX: Z12.31 Encounter for screening mammogram for malignant neoplasm of breast (principal); Z78.0 Asymptomatic menopausal state; Z80.3 Family history of malignant neoplasm of breast
CPT/HCPCS: 77067

== ENCOUNTER → 2023-03-24 | Outpatient (CLI) | payer BC ==
[2023-03-24 13:38] LABS: Basophils # (A) 0.07 X 10*3/uL (0.00-0.10); Basophils % (A) 1.8 %; Eosinophils # (A) 0.24 X 10*3/uL (0.04-0.35); Eosinophils % (A) 6.3 %; HCT 43.2 % (37.2-46.3); HGB 12.6 d/dL (12.0-15.0); Lymphocytes # (A) 0.79 X 10*3/uL (0.90-5.00); Lymphocytes % (A) 20.7 %; MCH 24.9 pg (27.0-32.0); MCHC 29.2 d/dL (32.0-37.0); MCV 85.2 FL (80.0-97.0); Mean Platelet Volume 10.1 FL (9.5-12.2); Monocytes # (A) 0.39 X 10*3/uL (0.20-1.00); Monocytes % (A) 10.2 %; NRBC Per 100 WBC 0 X 10*3/uL (0.00-0.01); Neutrophils % (A) 60.5 %; Platelet Count 251 X 10*3/uL (140-440); RBC 5.07 X 10*6/uL (4.10-5.20); RDW 15.5 % (11.5-14.5); WBC 3.81 X 10*3/uL (4.50-10.00)
[2023-03-24 16:04] LABS: ALT 33 U/L (8-44); AST 24 U/L (13-35); Albumin 4.3 d/dL (3.8-4.9); Albumin/Globulin Ratio 1.87 Ratio (1.60-3.17); Alkaline Phosphatase 81 U/L (41-126); Bilirubin, Conjugated <0.20 mg/dL (0.20-0.40); Bilirubin,Unconjugated >0.10 mg/dL (0.20-1.00); Globulin 2.3 d/dL (1.6-3.3); T4, Free (Free Thyroxine) 1.89 ng/dL (0.80-1.80); Total Bilirubin 0.3 mg/dL (0.3-1.2); Total Protein 6.6 d/dL (6.2-8.2)
[2023-03-24 17:07] LABS: INR 2.96 sec (0.93-1.11); Prothrombin Time 32.1 sec (9.9-11.9)
== END | disposition home or self-care (01) ==
LOC: LABWHC1 09:26
PROVIDERS: ATTEND Internal Medicine
DX: C73 Malignant neoplasm of thyroid gland (principal); E89.0 Postprocedural hypothyroidism; E55.9 Vitamin D deficiency, unspecified
CPT/HCPCS: 36415; 80076; 82306; 82565; 84432; 84439; 84443; 85025; 85610; 86800

== ENCOUNTER → 2023-06-28 | Outpatient (CLI) | payer BC ==
--- NOTE | 2023-06-28 09:02 | CT ---
EXAMINATION TYPE: CT chest w con CT DLP: 605.7 mGycm, Automated exposure control for dose reduction was used. DATE OF EXAM: 06/28/2023 8:48 AM COMPARISON: CT neck 02/20/2015. CLINICAL INDICATION:Female, 53 years old with history of R91.1 Lung nodule; R91.8; D84.9; PHH, lung n odule TECHNIQUE: Multiple axial images were obtained through the chest. Sagittal and coronal reformats were created for review. Contrast used:100 mL of Isovue 300 with IV Contrast (None if empty) Oral contrast used: (None if empty) FINDINGS: LUNGS/ PLEURA: There is no evidence of focal consolidation, pneumothorax or pleural effusion.. Right upper lobe peripheral pulmonary nodule measuring 3 mm series 4 image 15 is not seen on prior in 2014. AIRWAY: Patent and unremarkable. HEART: S the heart is mildly enlarged for size. Ize within normal limits. MEDIASTINUM: No gross evidence of adenopathy. VASCULATURE: No aortic aneurysm. MUSCULOSKELETAL: No acute osseous abnormalities subacute to chronic right posterior rib fractures of right rib 6 and 7. SOFT TISSUES/LYMPH NODES: Unremarkable. LOWER NECK: No significant findings. UPPER ABDOMEN: No significant findings. IMPRESSION: 1. Right upper lobe 3 mm pulmonary nodule. No additional pulmonary nodules visualized. Consider year ly low-dose lung cancer screening. 2. No acute thoracic process. 3. Remote appearing right posterior rib fractures of right ribs 6 and 7.
== END | disposition home or self-care (01) ==
LOC: RADCTMAIN 08:21
PROVIDERS: ATTEND Internal Medicine Rheumatology
DX: D84.9 Immunodeficiency, unspecified (principal); R91.1 Solitary pulmonary nodule; R91.8 Other nonspecific abnormal finding of lung field
CPT/HCPCS: 71260; Q9967

== ENCOUNTER → 2023-10-07 | Outpatient (CLI) | payer BC ==
[2023-10-07 14:15] LABS: ALT 19 U/L (8-44); AST 15 U/L (13-35); Albumin 4.3 g/dL (3.8-4.9); Albumin/Globulin Ratio 1.87 Ratio (1.60-3.17); Alkaline Phosphatase 83 U/L (41-126); BUN/Creat Ratio 20.33 Ratio (12.00-20.00); Blood Urea Nitrogen 12.2 mg/dL (9.0-27.0); Calcium 9.1 mg/dL (8.7-10.3); Carbon Dioxide 27.9 mmol/L (21.6-31.8); Chloride 110 mmol/L (96-109); Estradiol <20.0 pg/mL; Globulin 2.3 g/dL (1.6-3.3); Glucose 93 mg/dL (70-110); Potassium 4.1 mmol/L (3.5-5.5); Sodium 148 mmol/L (135-145); T4, Free (Free Thyroxine) 1.63 ng/dL (0.80-1.80); Total Bilirubin 0.2 mg/dL (0.3-1.2); Total Protein 6.6 g/dL (6.2-8.2)
[2023-10-07 14:51] LABS: Follicle Stimulating Hormone 35.1 mIU/mL; Luteinizing Hormone 20.1 mIU/mL
[2023-10-09 11:22] LABS: Anti-Endomysial IgA Antibody <1:10 Titer (<1:10)
== END | disposition home or self-care (01) ==
LOC: LABWHC1 08:50
PROVIDERS: ATTEND Internal Medicine
DX: E55.9 Vitamin D deficiency, unspecified (principal); M81.0 Age-related osteoporosis without current pathological fracture; N91.2 Amenorrhea, unspecified; E89.0 Postprocedural hypothyroidism
CPT/HCPCS: 36415; 80053; 82306; 82523; 82670; 83001; 83002; 83516; 83970; 84439; 84443; 86255

== ENCOUNTER 2024-01-01 09:25 | Day surgery (SDC) | payer BC ==
[~2024-01-01 09:25] MED LIST changes: -DEXAMETHASONE SOD PHOSPHATE 10 MG/ML 1 ML VIAL IV ONE; +HEPARIN SODIUM,PORCINE 5,000 UNIT/ML 1 ML VIAL SQ PRN; -LACTATED RINGERS 1,000 ML IV SCH; -LIDOCAINE 1% 20 ML VIAL (10MG/ML) FOR IV START INTRADERMA PRN; -MIDAZOLAM 2 MG/2 ML VIAL IV PRN; -fentaNYL (PF) 50 MCG/ML 2 ML AMP IV PRN
--- NOTE | 2024-01-01 09:27 | P.GSHP ---
History of Present Illness H&P Date: 01/01/24 Chief Complaint: Chronic cholecystitis 53-year-old female here today for laparoscopic cholecystectomy. Patient with intermittent right upper quadrant pains. Recent ultrasound shows gallstones. Recent labs show normal transaminases and bilirubin. Past Medical History Past Medical History: Cancer, Deep Vein Thrombosis (DVT), Pneumonia, Pulmonary Embolus (PE), Thyroid Disorder Additional Past Medical History / Comment(s): MTHFR Gene mutation predisposes to blood clots. 2 PE's 2006, pneumonia as a child, pericardial effusion-2006, series of DVT 1994, 2001, multiple thyroid nodules, hx thyroid cancer 2014, Lupus. History of Any Multi-Drug Resistant Organisms: None Reported Past Surgical History: Uterine Ablation Additional Past Surgical History / Comment(s): Norman filter placed 1994, removed 2017, left oopherectomy, 2 stents in iliac vein left side, Leg/venous surgery, thyroidectomy. saphenous vein removed on lft leg Past Anesthesia/Blood Transfusion Reactions: No Reported Reaction Smoking Status: Never smoker - Past Family History Father Family Medical History: Thyroid Disorder Additional Family Medical History / Comment(s): Hypothyroid, CHF. Medications and Allergies Home Medications Medication Instructions Recorded Confirmed Type Ergocalciferol (Vitamin D2) 50,000 unit PO MOFR 02/05/18 12/27/23 History [Vitamin D2] Hydroxychloroquine Sulfate 400 mg PO DAILY 02/05/18 12/27/23 History [Plaquenil] Levothyroxine Sodium [Synthroid] 175 mcg PO QAM 02/05/18 12/27/23 History Turmeric Root Extract [Turmeric] 500 mg PO DAILY 02/05/18 12/27/23 History Belimumab [Benlysta] 200 mg SQ POOLE 05/17/19 12/27/23 History Warfarin [Coumadin] 2.5 mg PO SUTUWETHSA 05/17/19 12/27/23 History Warfarin [Coumadin] 5 mg PO MOFR 05/17/19 12/27/23 History HYDROcodone/APAP 10-325MG [[place] 1 tab PO Q4HR PRN #40 tab 05/23/19 12/27/23 Rx 10-325] Fish Oil (Unk) 1,320 mg PO DAILY 12/27/23 12/27/23 History Lovenox(Unk) 1 dose INJ DIRECTED 12/27/23 12/27/23 History Allergies Allergy/AdvReac Type Severity Reaction Status Date / Time Iodinated Contrast Media Allergy Dyspnea Verified 12/27/23 15:03 [Iodinated Contrast Media - IV Dye] Surgical - Exam Physical exam: General: Well-developed, well-nourished HEENT: Normocephalic, sclerae nonicteric Abdomen: Nontender, nondistended Extremities: No edema Neuro: Alert and oriented Assessment and Plan (1) Chronic cholecystitis Narrative/Plan: Will proceed with laparoscopic cholecystectomy, possible open at this time. Risks of bleeding, infection, bile leak, bile duct injury, retained common bile duct stone, trocar injury, conversion to an open procedure, hernia, anesthesia related complications were reviewed. The patient understands and wishes to proceed. Status: Acute Code(s): K81.1 - CHRONIC CHOLECYSTITIS SNOMED Code(s): 85563592
[2024-01-01] MEDS: LACTATED RINGERS 1,000 ML IV SCH (10:21)
[2024-01-01] MEDS: ONDANSETRON 4 MG/2 ML VIAL IVP ONE (10:28)
[2024-01-01] MEDS: DEXAMETHASONE SOD PHOSPHATE 4 MG/ML 1 ML VIAL IV ONE (10:28)
[2024-01-01] MEDS: ACETAMINOPHEN TAB 500 MG TAB PO PRN (10:28)
[2024-01-01 10:37] LABS: Prothrombin Time 10.6 sec (10.0-12.5)
[2024-01-01] MEDS ORDERED: PROPOFOL 10 MG/ML 20 ML VIAL IV ONE (10:56)
[2024-01-01] MEDS ORDERED: PHENYLEPHRINE 10 MG/ML VIAL ONE (10:56)
[2024-01-01] MEDS ORDERED: MIDAZOLAM 2 MG/2 ML VIAL ONE (10:56)
[2024-01-01] MEDS ORDERED: KETOROLAC 15 MG/ML 1 ML VIAL ONE (10:56)
[2024-01-01] MEDS ORDERED: GLYCOPYRROLATE 0.2 MG/ML 2 ML VIAL ONE (10:56)
[2024-01-01] MEDS ORDERED: ROCURONIUM 10 MG/ML (5 ML VIAL) IV ONE (10:56)
[2024-01-01] MEDS ORDERED: NEOSTIGMINE 1 MG/ML 10 ML VIAL ONE (10:56)
[2024-01-01] MEDS ORDERED: SUCCINYLCHOLINE CHLORIDE 200 MG/10 ML VIAL IV ONE (10:56)
[2024-01-01] MEDS ORDERED: fentaNYL (PF) 50 MCG/ML 2 ML AMP ONE (10:56)
[2024-01-01] MEDS ORDERED: LIDOCAINE 1% INJ 10MG/ML (20 ML MDV) ONE (10:56)
[2024-01-01] MEDS: BUPIVACAINE (PF) 0.25% 30 ML VIAL SQ ONE ×2 (11:22)
[2024-01-01] MEDS: LACTATED RINGERS 1,000 ML IV ONE (11:56)
--- NOTE | 2024-01-01 12:18 | P.OP ---
Date of Procedure: 01/01/24 Procedure(s) Performed: PREOPERATIVE DIAGNOSIS: Chronic cholecystitis POSTOPERATIVE DIAGNOSIS: Same PROCEDURE: Laparoscopic cholecystectomy SURGEON: Ezequiel EBL: Minimal see anesthesia record ANESTHESIA: Gen. COMPLICATIONS: None OPERATIVE PROCEDURE: The patient was brought and placed on the operating room table in the supine position. The patient was placed under general anesthesia at that time. The abdomen was prepped and draped in the usual sterile fashion. A small vertical infraumbilical incision was made. The fascia was grasped with the Marcus forceps. The fascia was retracted anteriorly. The Veress needle was advanced into the peritoneal cavity. The saline drop test was normal. Insufflation took place up to 15 mmHg. A 5 mm optical trocar was advanced and the peritoneal cavity. 2 additional 5 mm trochars were placed in the right upper quadrant under direct visualization. A 12 mm trocar was advanced into the epigastric incision site. The gallbladder was very adherent to the surrounding pericolonic fat. There was edema in the wall of the gallbladder present. The gallbladder was retracted superiorly and laterally. The peritoneum overlying the infundibulum was bluntly dissected. The patient's cystic duct was visualized. The junction between the cystic duct common and hepatic duct was identified. The critical view of safety was achieved after blunt dissection. The cystic duct was then divided after placement of 3 12 mm clips on the patient's side and one on the specimen side. The cystic artery was identified and clipped as well. A small vessel was seen along the gallbladder fossa and clipped as well. The gallbladder was then removed from the liver bed using riki ctrocautery. The gallbladder was then removed from the epigastric trocar site with an Endo Catch bag. The gallbladder fossa was irrigated with saline. There was no evidence of any bleeding or biliary drainage seen. The fascia at the 12 millimeter site was closed using a Aleksandr-Louise 0 Vicryl stitch. The trochars were then removed. The skin at all 4 sites was closed using a 4-0 Monocryl stitch. Skin glue was utilized on the incision sites. At the end of this procedure the sponge and needle counts were correct. DISPOSITION: Stable to the recovery room
[2024-01-01 12:52] VITALS: TEMP 96.8
[2024-01-01] MEDS: HYDROmorphone 0.5 MG/0.5 ML SYRINGE IVP PRN (12:53)
[2024-01-01] MEDS ORDERED: ACETAMINOPHEN TAB 325 MG TAB PO SCH (16:00)
[2024-01-01 16:09] VITALS: BP 136/78; PULSE 68; RESP 16
[2024-01-01] MEDS ORDERED: IBUPROFEN 600 MG TAB PO SCH (19:00)
== END 2024-01-01 15:54 | disposition home or self-care (01) ==
LOC: OR 09:25
PROVIDERS: ATTEND Surgery
DX: K80.10 Calculus of gallbladder with chronic cholecystitis without obstruction (principal); E03.9 Hypothyroidism, unspecified; M32.9 Systemic lupus erythematosus, unspecified; Z86.711 Personal history of pulmonary embolism; Z86.718 Personal history of other venous thrombosis and embolism; Z91.041 Radiographic dye allergy status; Z79.890 Hormone replacement therapy; Z79.01 Long term (current) use of anticoagulants; Z79.899 Other long term (current) drug therapy
CPT/HCPCS: 88304; 85610; 47562; J2250; J0330; J1100; J2710; J0690; J2405; J2001; J3010; J1885; J2704; J1170; J2371; J0665

== ENCOUNTER → 2024-03-09 | Outpatient (CLI) | payer BC ==
[2024-03-09 14:07] LABS: ALT 13 U/L (8-44); AST 16 U/L (13-35); Albumin 4.3 g/dL (3.8-4.9); Albumin/Globulin Ratio 2.15 Ratio (1.60-3.17); Alkaline Phosphatase 81 U/L (41-126); Blood Urea Nitrogen 9.1 mg/dL (9.0-27.0); Carbon Dioxide 27.5 mmol/L (21.6-31.8); Chloride 106 mmol/L (96-109); Glucose 94 mg/dL (70-110); Potassium 3.8 mmol/L (3.5-5.5); Sodium 144 mmol/L (135-145); T4, Free (Free Thyroxine) 1.49 ng/dL (0.80-1.80); Total Bilirubin 0.3 mg/dL (0.3-1.2); Total Protein 6.3 g/dL (6.2-8.2)
== END | disposition home or self-care (01) ==
LOC: LABWHC1 07:48
PROVIDERS: ATTEND Internal Medicine
DX: C73 Malignant neoplasm of thyroid gland (principal); M81.0 Age-related osteoporosis without current pathological fracture; E55.9 Vitamin D deficiency, unspecified; E89.0 Postprocedural hypothyroidism
CPT/HCPCS: 36415; 80053; 82306; 84432; 84439; 84443; 86800

== ENCOUNTER → 2024-07-05 | Outpatient (CLI) | payer BC ==
--- NOTE | 2024-07-08 08:44 | MM ---
Reason for Exam: Screening (asymptomatic). Last mammogram was performed 1 year(s) and 11 month(s) ago. Patient History: Menarche at age 9. First Full-Term at age 25. Left ovary removed at age 39. Postmenopausal. Other cancer, age 44. Paternal cousin had breast cancer, age 45. Paternal aunt had breast cancer, age 60. Risk Values: Felicitas 5 year model risk: 1.5%. NCI Lifetime model risk: 9.7%. Prior Study Comparison: 10/31/2019 Bilateral Screening Mammogram, [facility]. 01/28/2021 Bilateral Screening Mammogram, [facility]. 08/02/2022 Bilateral MG screening mammo w CAD, [facility]. Tissue Density: The breasts are almost entirely fatty. Findings: Analyzed By CAD. Right breast: There is no suspicious group of microcalcifications or new suspicious mass. Left breast: There is no suspicious group of microcalcifications or new suspicious mass. Overall Assessment: Negative, BI-RAD 1 Management: Screening Mammogram of both breasts in [address] [facility] will attempt to contact patient to return for supplemental views and ultrasound if indicated. Patient should continue monthly self-breast exams. A clinical breast exam by your physician is recommended on an annual basis. This exam should not preclude additional follow-up of suspicious palpable abnormalities. Note on Felicitas scores and lifetime risk: 1. A Felicitas score greater than 3% is considered moderate risk. If this is the case, consider specialist referral to assess eligibility for a risk reducing agent. 2. If overall lifetime risk for the development of breast cancer is 20% or higher, the patient may qualify for future screening with alternating mammogram and breast MRI. [facility], , 07/08/2024 8:40 AM. Electronically signed and approved by: Santiago Ham DO
== END | disposition home or self-care (01) ==
LOC: RADMAMWWP 16:29
PROVIDERS: ATTEND Obstetrics & Gynecology Obstetrics
DX: Z12.31 Encounter for screening mammogram for malignant neoplasm of breast (principal); Z78.0 Asymptomatic menopausal state; Z80.3 Family history of malignant neoplasm of breast; Z90.722 Acquired absence of ovaries, bilateral
CPT/HCPCS: 77067